=== PATIENT | female | born 1945 ===

== ENCOUNTER 2017-12-08 07:11 | Day surgery (SDC) | payer MEDICARE, OTHER ==
[2017-12-08] MEDS ORDERED: Lactated Ringer's 500 ML IV ONE (07:53)
[2017-12-08 08:10] VITALS: TEMP 97.7
[2017-12-08] MEDS ORDERED: Propofol 10 mg/ml Inj (20 ML) ONE (08:54)
[2017-12-08 10:00] VITALS: BP 117/69; PULSE 69; RESP 11; O2SAT 100
== END 2017-12-08 10:01 | disposition home or self-care (01) ==
LOC: H.ENDO 07:11
PROVIDERS: ATTEND Internal Medicine Gastroenterology
DX: K92.2 Gastrointestinal hemorrhage, unspecified (principal); I10 Essential (primary) hypertension; K64.8 Other hemorrhoids; K57.30 Diverticulosis of large intestine without perforation or abscess without bleeding
CPT/HCPCS: 45378; J2001; J2704; J7120